=== PATIENT | male | born 1990 | race Caucasian/White ===

== ENCOUNTER 2023-02-01 18:05 | Emergency (ER) | payer MEDICAID ==
[~2023-02-01] VITALS: Ht 172.7 cm; Wt 87.0 kg
[2023-02-01 18:32] VITALS: BP 132/87
[2023-02-01] MEDS ORDERED: IBUPROFEN 400MG TABLET PO ONE (21:00)
[2023-02-01] MEDS ORDERED: METHOCARBAMOL 500MG TABLET PO ONE (21:00)
[2023-02-01] MEDS ORDERED: ACETAMINOPHEN 325MG TABLET PO ONE (21:00)
[2023-02-01] MEDS ORDERED: IBUP-2028 MT (23:40)
[2023-02-01] MEDS ORDERED: TOPUD MT (23:40)
== END 2023-02-02 00:38 | disposition home or self-care (01) ==
LOC: ER 18:05
DX: M54.50 Low back pain, unspecified (principal)
CPT/HCPCS: 72131; 99284